=== PATIENT | female | born 1935 | race Caucasian/White ===

== ENCOUNTER → 2017-12-09 10:27 | Outpatient (CLI) | payer MEDICARE, BC ==
[~2017-12-09] VITALS: Ht 154.9 cm; Wt 65.5 kg
--- NOTE | ~2017-12-09 | HEMODYNAMI ---
PATIENT:STEPHNA DUTTA MEDICAL RECORD: [id number] : 35 LOCATION:[facility] ADMISSION DATE: 12/09/17 Generatedon:12/09/201714:01 Patient name: STEPHAN DUTTA Patient #: [id number] SSN: : 1935 Date of study: 12/09/2017 Page: Of Hemodynamic Procedure Report Patient Data Patient Demographics Procedure consent was obtained First Name: STEPHAN Gender: Female Last Name: LUZMARIA : 1935 [facility] Initial: QUEENIE Age: 82 year(s) Patient #: [id number] Race: Unknown Additional ID: [id number] Contact details Address: [address] [place] [address] State: [place] City: [place] Zip code: [address] Past Medical History Allergies Allergen Reaction Date Comments Reported Other allergy 12/09/2017 sulfa Admission Admission Data Admission Date: 12/09/2017 Admission Time: 10:27 Admit Source: Other Lab Results Lab Result Date: 12/09/2017 Lab Result Time: 11:00 Biochemistry Name Units Result Min Max BUN mg/dl 17 --(---*)-- 7 18 Creatinine mg/dl 0.8 --(-*--)-- 0.6 1.3 CBC Name Units Result Min Max Hematocrit % 40.5 -*(----)-- 42 54 Hemoglobin g/dl 13.5 --(*---)-- 13.5 17.5 Procedure Procedure Types Cath Procedure Diagnostic Procedure LHC LH w/Coronaries Sedation Charges Moderate Sedation up to 15 minutes Procedure Description Procedure Date Procedure Date: 12/09/2017 Procedure Start Time: 13:46 Procedure End Time: 13:58 Procedure Staff Name Function Leonel Mckeon MD Performing Physician Alberto Mike RT Monitor Ramandeep Sullivan RT Scrub Ingrid Betancourt RN Nurse Fabiola Saez RN Nurse Eliecer Valladares RN Artificial Pearl Maker Procedure Data Cath Procedure Fluoroscopy Diagnostic fluoroscopy Total fluoroscopy Time: 1.5 time: 1.5 min min Diagnostic fluoroscopy Total fluoroscopy dose: 476 dose: 476 mGy mGy Contrast Material Contrast Material Type Amount (ml) Isovue 300 42 Entry Location Entry Primary Successful Side Size Upsize Upsize Entry Closure [place] ccessful Closure Location (Fr) 1 (Fr) 2 (Fr) Remarks Device Remarks Radial Right 6 Fr Mechanical artery Short Compression Estimated blood loss: 5 ml Diagnostic catheters Device Type Used For End Catheter Placement DIAGNOSTIC [place] 110cm 5 Procedure Fr catheter ([id number]) Procedure Complications No complications Procedure Medications Medication Administration Route Dosage 0.9% NaCl I.V. 100 ml/hr Oxygen etCO2 Nasal cannula 2 l/min Lidocaine 2% added to field 20 Heparin Flush Bag added to field 2 bags (1000units/500ml NS) Radial Cocktail added to field 1 syringe (Verapomil 2mg/Nitro 400mcg/Heparin 1500units) 0.9% NaCl I.V. bolus 250 ml Versed I.V. 2 mg Fentanyl I.V. 100 mcg Versed I.V. 1 mg Hemodynamics Rest HGB: 13.5 (g/dl) Heart Rate: 61 (bpm) Pressure Samples Time Site Value (mmHg) Purpose Heart Use Rate(bpm) 13:49 LV 69/1,6 Snapshot 56 Gradients Valve Time Site Site Mean SEP/DFP Peak To Heart Use 1 2 (mmHg) (sec/min) Peak Rate (mmHg) (bpm) Aortic 13:50 LV AO 57 Snapshots Pre Cath Intra NCS Post Cath Vital Signs Time Heart Resp SPO2 etCO2 NIBP (mmHg) Rhythm Pain Sedation Rate (ipm) (%) (mmHg) Status Level (bpm) 13:25:45 62 14 97 32.6 138/66(108) NSR 0 (11) 10(A) , No pain 13:30:01 63 12 96 36.4 140/67(117) NSR 0 (11) 10(A) , No pain 13:34:19 59 14 98 37 130/61(95) NSR 0 (11) 10(A) , No pain 13:38:27 58 11 97 30 76/42(68) NSR 0 (11) 10(A) , No pain 13:41:35 56 12 98 32 78/36(66) NSR 0 (11) 10(A) , No pain 13:45:39 57 16 97 33 77/36(62) NSR 0 (11) 10(A) , No pain 13:49:43 79 11 96 40 80/32(46) NSR 0 (11) 9(A) , No pain 13:53:47 58 14 96 34 76/29(48) NSR 0 (11) 9(A) , No pain 13:57:50 64 12 97 24.2 77/38(53) NSR 0 (11) 10(A) , No pain Medications Time Medication Route Dose Verified Delivered Reason Notes Effectiveness by by 13:19:42 0.9% NaCl I.V. 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 250 ml Leonel Fabiola For bolus Mike Saez hypotension RN 13:40:35 Versed I.V. 2 mg Leonel Fabiola for Mike Saez sedation RN 13:40:44 Fentanyl I.V. 100 mcg Leonel Fabiola for Mike Saez sedation RN 13:48:11 Versed I.V. 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 Start room use. 13:16:52 Informed consent obtained and on chart 13:16:54 Admit Source: Other 13:17:09 Diagnostic Cath status Elective 13:17:10 Time tracking: Regular hours (M-F 7:00 - 5:00) 13:17:14 Plan of Care:Hemodynamics will remain stable., Cardiac rhythm will remain stable., Comfort level will be maintained., Respiratory function will remain adequate., Patient/ family verbilizes understanding of procedure., Procedure tolerated without complication., Recovers from procedure without complications.. 13:17:51 Patient received from Pre/Post Procedure Room to CCL 1 Alert and oriented. Tansferred to table in Supine position. 13:17:52 Warm blankets applied, and ming hugger turned on for patient comfort. 13:17:52 Correct patient and procedure confirmed by team. 13:17:53 ECG and BP/O2 sat monitors applied to patient. 13:18:51 H&P Date Dictated: 11/25/2017 Within 30 days and on chart., H&P Addendum completed by physician on day of procedure. (MUST COMPLETE FOR ALL OUTPATIENTS). 13:18:52 Pre-procedure instructions explained to patient. 13:18:52 Pre-op teaching completed and patient verbalized understanding. 13:19:42 0.9% NaCl 100 ml/hr I.V. was administered by Fabiola Saez RN; used for procedure; 13:19:51 Oxygen 2 l/min etCO2 Nasal cannula was administered by Fabiola Saez RN; used for procedure; 13:20:00 Lidocaine 2% 20ml vial added to field was administered by Leonel Mckeon MD; for local anesthetic; 13:20:04 Heparin Flush Bag (1000units/500ml NS) 2 bags added to field was administered by Leonel Mckeon MD; used for procedure; 13:24:04 Vital chart was started 13:29:36 Radial Cocktail (Verapomil 2mg/Nitro 400mcg/Heparin 1500units) 1 syringe added to field was administered by Leonel Mckeon MD; used for procedure; 13:31:18 Baseline sample Acquired. 13:31:21 Rhythm: sinus rhythm 13:31:23 Full Disclosure recording started 13:31:26 Family in waiting room. 13:31:28 Patient NPO since Midnight. 13:31:34 Patient allergic to Other allergysulfa 13:31:36 Is the patient allergic to Iodine/contrast media? No. 13:31:37 Is patient on blood thinner?Yes 13:31:43 ACC The patient was administered the following blood thiners within the last 24 hours: ACCPlavix 13:31:45 Patient diabetic? No. 13:31:49 Previous problem with sedation/anesthesia? No ? 13:31:50 Snore? Yes 13:31:51 Sleep apnea? No 13:31:51 Deviated septum? No 13:31:52 Opens mouth fully? Yes 13:31:53 Sticks out tongue? Yes 13:31:56 Airway obstruction? Yes COPD 13:32:02 Dentures? Yes IN TIGHT 13:32:05 Pre procedure: right dorsailis pedis pulse 2+ Normal; easily identifiable; not easily obliterated 13:32:07 Modified Brian's test Ulnar < 7 seconds 13:32:09 Patient pain scale 0/10 ?. 13:32:19 IV patent on arrival in left wrist with 0.9% NaCl at [facility]. 13:34:40 Lab Result : BUN 17 mg/dl 13:34:40 Lab Result : Hemoglobin 13.5 g/dl 13:34:40 Lab Result : Creatinine 0.8 mg/dl 13:34:40 Lab Result : Hematocrit 40.5 % 13:34:43 Lab results completed and on chart. 13:34:45 Right Radial & Right Groin area was prepped with chlora-prep and draped in sterile fashion 13:34:46 Alarms reviewed by R. N. 13:34:46 Sharps counted by scrub and verified by R.N. 13:34:48 Use device set Radial Dx or PCI 13:34:49 ACIST Syringe (37897) opened to sterile field. 13:34:49 Medline Cath Pack ([id number]) opened to sterile field. 13:34:49 Bag Decanter (2002S) opened to sterile field. 13:34:50 ACIST Manifold (42697) opened to sterile field. 13:34:50 ACIST Hand Control (87175) opened to sterile field. 13:34:51 Tegaderm 4 x 4 (1626W) opened to sterile field. 13:34:51 MBrace Wrist Support ([id number]) opened to sterile field. 13:34:52 SHEATH 6Fr Prelude Radial ([id number]) opened to sterile field. 13:34:53 DIAGNOSTIC WIRE .035 260cm J wire (349462) opened to sterile field. 13:36:04 Zero performed for pressure channel P1 13:39:45 Physician arrived 13:39:45 --------ALL STOP TIME OUT------ 13:39:46 Final Timeout: patient, procedure, and site verified with staff and physician. All members of the team are in agreement. 13:39:48 Right Radial & Right Groin site verified by team. 13:39:51 Physical assessment completed. ASA score P 2 - A patient with mild systemic disease as per Leonel Mckeon MD. 13:39:53 Sedation plan: IV Moderate Sedation Medication:Versed, Fentanyl 13:40:10 0.9% NaCl 250 ml I.V. bolus was administered by Fabiola Saez RN; For hypotension; 13:40:35 Versed 2 mg I.V. was administered by Fabiola Saez RN; for sedation; 13:40:44 Fentanyl 100 mcg I.V. was administered by Fabiola Saez RN; for sedation; 13:46:20 Procedure started. 13:46:23 Local anesthetic to right radial artery with Lidocaine 2% by Leonel Mckeon MD.INITIAL ACCESS ONLY 13:47:54 A 6 Fr Short sheath was inserted into the Right Radial artery 13:48:11 Versed 1 mg I.V. was administered by Fabiola Saez RN; for sedation; 13:48:20 A DIAGNOSTIC [place] 110cm 5 Fr catheter ([id number]) was advanced over the wire and used for Procedure. 13:49:34 LV gram done using LIU 13:49:37 Injector settings: Ml/sec: 5, Volume: 15, 13:49:38 LV hemodynamics recorded. 13:49:46 EF : 60 % 13:50:26 RCA angiography performed. 13:50:57 LCA angiography performed. 13:55:02 Catheter removed. 13:55:31 TR BAND Standard ([id number]) opened to sterile field. 13:55:40 Sheath removed intact; hemostasis achieved with Mechanical Compression to the Right Radial artery. 13:55:42 Procedure ended.(Physican Out) 13:56:22 Fluoroscopy time 01.50 minutes. 13:56:26 Fluoroscopy dose: 476 mGy 13:56:26 Flurop Dose total: 476 13:56:29 Contrast amount:Isovue 300 42ml. 13:56:31 Sharps counted by scrub and verified by R.N. 13:56:35 TR band inflated with 12cc of air. 13:56:36 Insertion/operative site no bleeding no hematoma. 13:57:05 Post right radial artery:stable, soft, clean and dry 13:57:07 Post Procedure Pulses reassessed and unchanged 13:57:09 Post-procedure physical assessment completed. ASA score P 2 - A patient with mild systemic disease as per Leonel Mckeon MD. 13:57:11 Post procedure rhythm: unchanged. 13:57:15 Estimated blood loss: 5 ml 13:57:17 Post procedure instruction explained to patient.Patient verbalizes understanding. 13:57:17 Patient needs reinforcement of post procedure teaching. 13:57:55 Procedure type changed to Cath procedure, Diagnostic procedure, LHC, LHC w/Coronaries, Sedation Charges, Moderate Sedation up to 15 minutes 13:58:07 Procedure and supply charges have been captured, reviewed, submitted and are correct. 13:58:09 Procedure Complication : No complications 13:58:11 Vital chart was stopped 13:58:12 See physician's report for complete and final results. 13:58:13 Report given to Pre/Post Procedure Room. 13:58:15 Patient transfered to Pre/Post Procedure Room with Stretcher. 13:58:17 Procedure ended. 13:58:17 Full Disclosure recording stopped 13:58:21 End room use (Document Last) Device Usage Item Name Manufacture Quantity Catalog Number Hospital Part Current M inimal Lot# / Charge Number Stock Stock Serial# Code ACIST Syringe Acist 1 17697 340250 943031 219115 2 0 (47949) [employer] Medline Cath Medline 1 [id number] 34883 915787 5 Pack ([id number]) Bag Decanter Microtek 1 2001S 256753 94246 945305 5 () Medical Inc. ACIST Manifold Acist 1 37610 851418 155646 992344 5 (73894) [employer] ACIST Hand Acist 1 78162 453521 928681 754900 5 Control (75992) [employer] Tegaderm 4 x 4 3M 1 1626W 532672 743238 608269 5 (1626W) MBrace Wrist Advanced 1 140-0250-00 858191 31037 766166 5 Support Vascular ([id number]) Dynamics SHEATH 6Fr Merit 1 [id number] 523120 414973 791720 5 Prelude Radial Medical ([id number]) DIAGNOSTIC WIRE [facility] [place] 1 [id number] 715776 624747 885246 3 0 .035 260cm J wire (298549) DIAGNOSTIC Terumo 1 40-2324 572175 066194 061696 5 [place] 110cm 5 Fr catheter (054691) TR BAND Terumo 1 [id number] 182049 861334 836792 4 0 Standard ([id number]) Signature Audit [place] Stage Time Signature Unsigned Intra-Procedure 12/09/2017 Alberto Mike 2:01:05 PM RT(R) Signatures Monitor : Alberto Mike RT Signature : Date : Time : [address] [address]
[~2017-12-09 10:27] MED LIST: ANTIVERT12.5 MG PO; AZELASTINE137 MCG/0. NASAL; BETAPACE 80 MG80 MG PO; CHLORTHALIDONE25 MG PO; CLARITIN 10 MG10 MG PO; CO Q-1050 MG PO; COZAAR50 MG PO; ISOSORBIDE MONO30 M1 PO; NITROSTAT0.4 MG SL; OXYCODONE-APAP1 T10 PO; PLAVIX75 MG PO; PROTONIX40 MG PO; RANITIDINE HCL150 M1 PO; VITAMIN B-12500 MC1 PO; ZOCOR20 MG PO
[2017-12-09 10:59] VITALS: BP 121/52; Ht 154.9 cm; Wt 65.5 kg
[2017-12-09 11:26] LABS: BASOPHILS 0.4 % (0-2); EOSINOPHILS 5.2 % (0-7); HEMATOCRIT 40.5 % (36.0-48.0); HEMOGLOBIN 13.5 g/dL (12-16); IMMATURE GRANULOCYTES 0.2 % (0-5); MCH 29.6 pg (26.0-34.0); MCHC 33.3 g/dL (31.0-37.0); MCV 88.8 fL (80.0-100.0); MEAN PLATELET VOLUME 9.9 fL (7.4-10.4); MONOCYTES 14.2 % (2-11); PLATELET COUNT 249 10x3/uL (130-400); RBC 4.56 10x6/uL (4.00-5.40); RDW 14.4 % (11.5-14.5); WBC 9.7 10x3/uL (4.8-10.8)
[2017-12-09 11:38] LABS: ANION GAP 7.4 mmol/L (8-16); CARBON DIOXIDE 33.4 mmol/L (21.0-32.0); CREATININE - SERUM 0.8 mg/dL (0.6-1.3); POTASSIUM - SERUM 3.8 mmol/L (3.5-5.1)
== END | disposition home or self-care (01) ==
LOC: D.CATH 12-02 13:00
PROVIDERS: Internal Medicine Cardiovascular Disease
DX: I25.110 Atherosclerotic heart disease of native coronary artery with unstable angina pectoris (principal)